=== PATIENT | male | born 1950 | race African-American/Black ===

== ENCOUNTER 2018-09-23 18:20 | Emergency (ER) | payer OTHER ==
[~2018-09-23] VITALS: Ht 188 cm; Wt 108.9 kg
[~2018-09-23 18:20] MED LIST: ATORVASTATIN CA40 MG PO; GLIMEPIRIDE4 MG PO; LOSARTAN-HCTZ1 EACH PO
[2018-09-23] MEDS ORDERED: EZETIMIBE10 MG PO (18:30)
== END 2018-09-23 22:06 | disposition home or self-care (01) ==
LOC: ER 18:20
DX: B02.29 Other postherpetic nervous system involvement (principal)